=== PATIENT | female | born 1995 | race Caucasian/White ===

== ENCOUNTER 2017-01-07 17:39 | Emergency (ER) | payer BC ==
[2017-01-07 18:19] VITALS: BP 163/95
--- NOTE | 2017-01-07 19:57 | UC ---
Complaint Female HPI - HPI Summary HPI Summary: 21 yo female with a 2 day hx of vaginal d/c and itch along with urgency and frequency of urination no f/c no n/v/d - History Of Current Complaint Chief Complaint: UCGU Stated Complaint: URINARY Time Seen by Provider: 01/07/17 19:46 Hx Last Menstrual Period: 12/15/16 Onset/Duration: Gradual Onset, Lasting Days Timing: Constant Severity Initially: Mild Severity Currently: Mild Pain Intensity: 1 Pain Scale Used: 0-10 Numeric Character: Burning Aggravating Factor(s): Urination Associated Signs And Symptoms: Positive: Vaginal Discharge. Negative: Fever, Back Pain, Nausea, Vomiting(# Of Episodes =), Genital Swelling, Genital Blisters Related Hx: Similar Episode/Dx as: - yeast infection - Allergies/Home Medications Allergies/Adverse Reactions: Allergies Allergy/AdvReac Type Severity Reaction Status Date / Time No Known Allergies Allergy Verified 01/07/17 18:19 Home Medications: Home Medications Phenazopyridine HCl [Azo Urinary Pain Relief] 95 mg PO DAILY 01/07/17 [History Confirmed 01/07/17] PMH/Surg Hx/FS Hx/Imm Hx Previously Healthy: Yes - IgA neprhopathy Respiratory History Of: Reports: Pneumonia - as child - Surgical History Surgical History: Yes Surgery Procedure, Year, and Place: tonsils, adenoids, ear tubes, kidney bx - Family History Known Family History: Negative: Cardiac Disease, Hypertension, Diabetes - Social History Alcohol Use: Rare Substance Use Type: None Smoking Status (MU): Never Smoked Tobacco Review of Systems Constitutional: Negative Skin: Negative Eyes: Negative ENT: Negative Respiratory: Negative Cardiovascular: Negative Gastrointestinal: Negative Genitourinary: Frequency, Urgency Motor: Negative Neurovascular: Negative Musculoskeletal: Negative Neurological: Negative Psychological: Negative All Other Systems Reviewed And Are Negative: Yes Physical Exam Triage Information Reviewed: Yes Appearance: Well-Appearing, No Pain Distress, Well-Nourished Vital Signs: Initial Vital Signs Temp 98.9 F 01/07/17 18:14 Pulse 101 01/07/17 18:14 Resp 16 01/07/17 18:14 BP 163/95 01/07/17 18:14 Pulse Ox 98 01/07/17 18:14 Vital Signs Reviewed: Yes Eye Exam: Normal ENT: Positive: Hearing grossly normal, Nasal congestion, Nasal drainage. Negative: Trismus, Muffled/hoarse voice Neck: Positive: Supple, Nontender, No Lymphadenopathy Respiratory: Positive: Lungs clear, Normal breath sounds, No respiratory distress Cardiovascular: Positive: RRR, No Murmur Abdomen Description: Positive: Nontender, No Organomegaly, Soft. Negative: Distended, Guarding Bowel Sounds: Positive: Present Musculoskeletal: Positive: ROM Intact, No Edema Neurological: Positive: Alert Psychological Exam: Normal Skin Exam: Normal Complaint Female Dx - Course Course Of Treatment: discussed BP with pt - she states she is follow closely at her PMDs. "white coat hypertension". ext gent-normal. vagina- profuse whitish DC. cx -mucoid d/c, no CMT. adenexa- non tender - Differential Dx/Diagnosis Provider Diagnoses: vaginitis Discharge - Discharge Plan Condition: Stable Disposition: HOME Prescriptions: Fluconazole 150 MG (NF) [Diflucan 150 mg (NF)] 150 mg PO ONCE #1 tab Metronidazole [Flagyl 500 MG TAB] 500 mg PO TID #21 tab Patient Education Materials: Vaginitis (ED) Referrals: Non Staff,Doctor [Primary Care Provider] -
== END 2017-01-07 20:37 | disposition home or self-care (01) ==
LOC: UCCORT 17:39
DX: N76.0 Acute vaginitis (principal)
CPT/HCPCS: 87086; 87480; 87491; 87510; 87591; 87661; 99212; G0463